=== PATIENT | female | born 1985 | race African-American/Black ===

== ENCOUNTER 2023-08-18 09:04 | Outpatient (CLI) | payer BC | END 2023-08-18 09:05 | disposition home or self-care (01) | LOC: CSHULT 09:04 | PROVIDERS: ATTEND Nurse Practitioner Family | DX: R10.10 Upper abdominal pain, unspecified (principal) | CPT/HCPCS: 76700 ==

== ENCOUNTER 2024-03-20 00:12 | Emergency (ER) | payer BC ==
[2024-03-20] MEDS ORDERED: Ondansetron PF 4 MG/2 ML Vial ONE (03:02)
[2024-03-20] MEDS ORDERED: Morphine 4 MG/ML VIAL ONE (03:02)
[2024-03-20] MEDS ORDERED: Ketorolac Tromethamine 30 MG (1 mL) VIAL ONE (04:33)
== END 2024-03-20 03:56 | disposition home or self-care (01) ==
LOC: CSHERS 00:12
DX: K80.70 Calculus of gallbladder and bile duct without cholecystitis without obstruction (principal); R73.03 Prediabetes
CPT/HCPCS: 76705; 96374; 96375; J1885; J2270; J2405

== ENCOUNTER 2024-04-12 13:57 | Outpatient (CLI) | payer BC ==
[2024-04-12 15:33] LABS: Platelet Count 324 10x3/uL (150-450)
[2024-04-12 15:35] LABS: #Basophils Less than 0.03 10x3/uL (0.0-0.2); #Eosinophils 0.08 10x3/uL (0.0-0.5); #Monocytes 0.51 10x3/uL (0.0-1.1); #Neutrophils 2.35 10x3/uL (1.5-8.4); %Basophils 0.3 % (0.0-2.0); %Eosinophils 1.3 % (0.0-6.0); %Lymphocytes 52.3 % (18.0-47.0); %Monocytes 8.2 % (0.0-10.0); %Neutrophils 37.7 % (40.0-75.0); Hematocrit 37.4 % (34.9-44.5); Hemoglobin 11.9 g/dL (12.0-15.5); Mean Corpuscular HGB CONC 31.8 g/dL (32.0-36.0); Mean Corpuscular Hemoglobin 28.7 pg (27.0-33.0); Mean Corpuscular Volume 90.1 fL (81.6-98.3); RBC Distribution Width 12.7 % (11.5-14.5); Red Blood Cell (RBC) Count 4.15 10x6/uL (3.90-5.03); White Blood Cell (WBC) Count 6.23 10x3/uL (3.5-10.5)
[2024-04-12 15:44] LABS: ALT (SGPT) 13 U/L (Less than 34); AST (SGOT) 12 U/L (11-34); Albumin 3.8 g/dL (3.1-4.5); Alkaline Phosphatase 57 U/L (40-110); Anion Gap 12 mmol/L (10-20); BUN (Urea Nitrogen) 12 mg/dL (7.0-18.7); Bilirubin, Direct 0.1 mg/dL (0.1-0.3); Bilirubin, Total 0.3 mg/dL (0.3-1.2); Calc. Creatinine Clearance 0 mL/min (70-130); Calcium 8.9 mg/dL (7.8-10.44); Carbon Dioxide 26 mmol/L (22-29); Chloride 106 mmol/L (98-107); Estimated GFR 93; Glucose 81 mg/dL (70-105); Potassium 4.7 mmol/L (3.5-5.1); Protein, Total 7.2 g/dL (6.0-8.3); Sodium 139 mmol/L (136-145)
== END 2024-04-12 13:58 | disposition home or self-care (01) ==
LOC: CSHLAB 13:57
PROVIDERS: ATTEND Surgery
DX: Z01.818 Encounter for other preprocedural examination (principal); K80.20 Calculus of gallbladder without cholecystitis without obstruction
CPT/HCPCS: 80048; 80076; 85025; 93005; 93010